=== PATIENT | female | born 1970 | race American Indian/Alaskan Native ===

== ENCOUNTER 2019-05-10 07:34 | Outpatient (CLI) | payer BC ==
--- NOTE | 2019-05-10 09:38 | Mammography Report ---
DIGITAL SCREENING MAMMOGRAM WITH CAD, 05/10/2019 INDICATION: Routine screening mammography. TECHNIQUE: Digital bilateral 2D mammography was obtained in the craniocaudal and mediolateral obliq ue projections. This examination was interpreted with the benefit of Computer-Aided Detection analysi s. COMPARISON: 02/14/2011 FINDINGS: Breast Density: The breasts are heterogeneously dense, which may obscure small masses. A left focal asymmetry requires additional imaging. No architectural distortion or suspicious calcifi cations of the left breast. There is no evidence of dominant mass, suspicious calcifications or archi tectural distortion in the right breast. IMPRESSION: Left focal asymmetry requiring additional imaging. Recommend recall for left lateral medi al and spot magnification MLO and CC views and left breast ultrasound if needed. Follow up recommendation: Routine yearly Category 0: Incomplete. Needs additional imaging evaluation and/or prior mammograms for comparison. A "normal" or negative report should not discourage follow up or biopsy of a clinically significant f inding. A written summary of these findings will be mailed to the patient. The patient will be entered into a mammography reporting system which will generate a reminder letter for the patient's next appointmen t at the appropriate interval. The [employer] recommends yearly mammograms starting at age 40 and continuing as l nasima as a woman is in good health. Breast MRI is recommended for women with an approximate 20-25% or greater lifetime risk of breast cancer, including women with a strong family history of breast or ova cristofer cancer or who have been treated for Hodgkin's disease. Signer Name: Denis Marmolejo MD Signed: 05/10/2019 9:34 AM Workstation Name: [id number]
--- NOTE | 2019-05-10 13:34 | Vascular Lab Report ---
DUPLEX DOPPLER LOWER EXTREMITY ARTERIAL, RIGHT INDICATION: PAIN IN RIGHT LOWER LEG. TECHNIQUE: Arterial duplex examination of both lower extremities performed using B-mode, color flow and spectral Doppler assessment. FINDINGS: RIGHT: Common Femoral Artery: PSV 112 cm/sec. Triphasic waveform. Proximal SFA: PSV 124 cm/sec. Triphasic waveform. Mid SFA: PSV 127 cm/sec. Triphasic waveform. Distal SFA: PSV 93 cm/sec. Triphasic waveform. Popliteal artery: PSV 85 cm/sec. Triphasic waveform. Posterior tibial artery: PSV 110 cm/sec. Triphasic waveform. Anterior tibial artery: PSV 93 cm/sec. Biphasic waveform. Dorsalis Pedis Artery: PSV 104 cm/sec. Triphasic waveform. IMPRESSION: No significant right lower extremity peripheral artery disease. Doppler Waveform: * Triphasic is normal. * Biphasic is abnormal if clear transition from triphasic signal along vascular tree. * Monophasic is abnormal. Signer Name: Gilmar Bryan Jr, MD Signed: 05/10/2019 1:29 PM Workstation Name: [id number]
== END 2019-05-10 07:35 | disposition home or self-care (01) ==
LOC: VAS 07:34
PROVIDERS: ATTEND Obstetrics & Gynecology
DX: Z12.31 Encounter for screening mammogram for malignant neoplasm of breast (principal); M79.604 Pain in right leg
CPT/HCPCS: 77067

== ENCOUNTER 2019-07-03 18:11 | Inpatient (IN) | payer BC ==
--- NOTE | 2019-07-03 18:36 | Event Note ---
ED Screening Note Date of service: 07/03/19 Time: 18:34 ED Screening Note: Pt complains of heavy vaginal bleeding x today had hysterectomy 06/15/19 This initial assessment/diagnostic orders/clinical plan/treatment(s) is/are subject to change based on patients health status, clinical progression and re- assessment by fellow clinical providers in the ED. Further treatment and workup at subsequent clinical providers discretion. Patient/guardian urged not to elope from the ED as their condition may be serious if not clinically assessed and managed. Initial orders include: CT labs
[2019-07-03] MEDS ORDERED: SODIUM CHLORIDE 0.9% 1000 ML 1,000 ML IV ONE (18:54)
--- NOTE | 2019-07-03 18:59 | Emergency Department Report ---
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 She recently had a total abdominal hysterectomy with bilateral salpingo-oophorectomy, between June 15, June 17 of this year. She was discharged without significant complication. She followed up with her nurse case management on the , and stated that her postop visit was unremarkable and within normal limits. Today, the patient presents to the ER with a complaint of painless vaginal bleeding and passing tissue, which started at 5:00 this afternoon. Symptoms are constant. They do not radiate anywhere. They do not have exacerbating or relieving factors. She denies additional complaints. She states that from a pain perspective, her pain has been the most well-controlled that it is been since her surgery, she is not required any pain medicine. She denies headache, neck pain, chest pain, shortness of breath, abdominal pain, urinary symptoms, hematemesis and bright red blood per rectum. She further endorses that she does not take any blood thinning medications. -: Sudden Consistency: constant Improves with: none Worsens with: none Associated Symptoms: denies other symptoms - Related Data Home Medications Medication Instructions Recorded Confirmed Last Taken Iron Fum,Ps/Folic/Bcomp,C No.9 1 each PO DAILY 06/07/19 06/15/19 06/14/19 09:00 [Integra Plus Capsule] amLODIPine 10 mg PO DAILY 06/07/19 06/15/19 06/15/19 06:00 hydroCHLOROthiazide [HCTZ] 12.5 mg PO DAILY 06/07/19 06/15/19 06/14/19 09:00 Allergies Allergy/AdvReac Type Severity Reaction Status Date / Time No Known Allergies Allergy Verified 06/07/19 12:07 ED Review of Systems ROS: Stated complaint: POST OP PAIN/VAG BLEEDING Other details as noted in HPI Constitutional: denies: fever Eyes: denies: eye discharge ENT: denies: congestion Cardiovascular: denies: syncope Gastrointestinal: denies: abdominal pain, nausea, vomiting, hematemesis, melena, hematochezia Genitourinary: other (Vaginal bleeding). denies: dysuria Musculoskeletal: as per HPI Skin: as per HPI Neurological: as per HPI Psychiatric: as per HPI Hematological/Lymphatic: as per HPI ED Past Medical Hx - Past Medical History Previous Medical History?: Yes Hx Hypertension: Yes (instructed to take amlodipine DOS) Hx Heart Attack/AMI: No Hx Congestive Heart Failure: No Hx Diabetes: No Hx Liver Disease: No Hx Renal Disease: No Hx Asthma: No Hx COPD: No Additional medical history: fibroids - Surgical History Past Surgical History?: Yes Additional Surgical History: Hysterectomy - Social History Smoking Status: Never Smoker Substance Use Type: None - Medications Home Medications: Home Medications Medication Instructions Recorded Confirmed Last Taken Type Iron Fum,Ps/Folic/Bcomp,C No.9 1 each PO DAILY 06/07/19 06/15/19 06/14/19 09:00 History [Integra Plus Capsule] amLODIPine 10 mg PO DAILY 06/07/19 06/15/19 06/15/19 06:00 History hydroCHLOROthiazide [HCTZ] 12.5 mg PO DAILY 06/07/19 06/15/19 06/14/19 09:00 History ED Physical Exam - General Limitations: No Limitations General appearance: alert, anxious, in distress - Head Head exam: Present: atraumatic, normocephalic - Eye Eye exam: Present: normal appearance, EOMI. Absent: nystagmus - ENT ENT exam: Present: normal exam, normal orophraynx, mucous membranes moist, normal external ear exam - Neck Neck exam: Present: normal inspection, full ROM. Absent: tenderness, meningismus - Respiratory Respiratory exam: Present: normal lung sounds bilaterally. Absent: respiratory distress - Cardiovascular Cardiovascular Exam: Present: regular rate, normal rhythm, normal heart sounds. Absent: bradycardia, tachycardia, irregular rhythm, systolic murmur, diastolic murmur, rubs, gallop - GI/Abdominal GI/Abdominal exam: Present: soft, normal bowel sounds. Absent: distended, tenderness, guarding, rebound, rigid, pulsatile mass - External exam: Present: normal external exam Speculum exam: Present: vaginal bleeding, tissue, other (Chaperoned by shipping & receiving lead Betzaida Shin) - Extremities Exam Extremities exam: Present: normal inspection, full ROM, other (2+ pulses noted in the bilateral upper and lower extremities. There is no palpable cord. negative Homans sign. Muscular compartments are soft. The pelvis is stable.). Absent: pedal edema, calf tenderness - Back Exam Back exam: Present: normal inspection, full ROM. Absent: tenderness, CVA tenderness (R), CVA tenderness (L), paraspinal tenderness, vertebral tenderness - Neurological Exam Neurological exam: Present: alert, oriented X3, normal gait, other (There is no facial droop. The tongue is midline. Extraocular movements are intact bilaterally. There is 5 out of 5 strength in bilateral upper and lower extremities. Sensation is intact to light touch bilateral upper and lower extremities. There is no past-pointing. There is a normal gait.). Absent: motor sensory deficit - Psychiatric Psychiatric exam: Present: anxious - Skin Skin exam: Present: warm, dry, intact, normal color. Absent: rash ED Course Vital Signs 07/03/19 07/03/19 18:19 18:21 Temperature 98.0 F 98.0 F Pulse Rate 79 85 Respiratory 16 16 Rate Blood Pressure 163/93 163/93 O2 Sat by Pulse 99 98 Oximetry - Reevaluation(s) Reevaluation #1: 07/03/19 19:23 Differential diagnosis, including but not limited to: Postoperative bleeding, laceration, postoperative complication Assessment and plan: 48-year-old female who is afebrile with reassuring vital signs, with no abdominal pain, tenderness, rebound or guarding, who is approximately 2-1/2 to 3 weeks status post total abdominal hysterectomy with bilateral salpingo-oophorectomy, now with new onset spontaneous vaginal bleeding. Her nurse case management, Dr. Rosita Sharma, is in route to evaluate and examine the patient. IV access will be established, IV fluids ordered, screening laboratory studies ordered. Hypertension reviewed and appreciated, the patient apparently has a history of chronic hypertension, we will withhold antihypertensive agents at this time. 07/03/19 20:18 Dr Bowen to admit ED Medical Decision Making - Lab Data Result diagrams: 07/03/19 19:03 07/03/19 19:03 Vital Signs 07/03/19 07/03/19 18:19 18:21 Temperature 98.0 F 98.0 F Pulse Rate 79 85 Respiratory 16 16 Rate Blood Pressure 163/93 163/93 O2 Sat by Pulse 99 98 Oximetry Vital Signs - 24 hr 07/03/19 07/03/19 18:19 18:21 Temperature 98.0 F 98.0 F Pulse Rate 79 85 Respiratory 16 16 Rate Blood Pressure 163/93 163/93 O2 Sat by Pulse 99 98 Oximetry Lab Results 07/03/19 07/03/19 07/03/19 Range/Units 19:03 19:03 19:03 WBC 6.0 (4.5-11.0) K/mm3 RBC 4.59 (3.65-5.03) M/mm3 Hgb 10.7 (10.1-14.3) gm/dl Hct 34.1 (30.3-42.9) % MCV 74 L (79-97) fl MCH 23 L (28-32) pg MCHC 31 (30-34) % RDW 18.6 H (13.2-15.2) % PT TNR INR TNR APTT TNR Sodium 138 (137-145) mmol/L Potassium 4.2 (3.6-5.0) mmol/L Chloride 102.5 (98-107) mmol/L Carbon Dioxide 22 (22-30) mmol/L Anion Gap 18 mmol/L BUN 12 (7-17) mg/dL Creatinine 0.8 (0.7-1.2) mg/dL Estimated GFR > 60 ml/min BUN/Creatinine Ratio 15 % Glucose 112 H (65-100) mg/dL Calcium 9.3 (8.4-10.2) mg/dL Magnesium (1.7-2.3) mg/dL Total Bilirubin < 0.20 (0.1-1.2) mg/dL AST 19 (5-40) units/L ALT 12 (7-56) units/L Alkaline Phosphatase 52 (35-129) units/L Total Creatine Kinase (30-135) units/L Total Protein 7.6 (6.3-8.2) g/dL Albumin 4.6 (3.9-5) g/dL Albumin/Globulin Ratio 1.5 % Blood Type 07/03/19 07/03/19 Range/Units 19:03 19:03 WBC (4.5-11.0) K/mm3 RBC (3.65-5.03) M/mm3 Hgb (10.1-14.3) gm/dl Hct (30.3-42.9) % MCV (79-97) fl MCH (28-32) pg MCHC (30-34) % RDW (13.2-15.2) % PT INR APTT Sodium (137-145) mmol/L Potassium (3.6-5.0) mmol/L Chloride (98-107) mmol/L Carbon Dioxide (22-30) mmol/L Anion Gap mmol/L BUN (7-17) mg/dL Creatinine (0.7-1.2) mg/dL Estimated GFR ml/min BUN/Creatinine Ratio % Glucose (65-100) mg/dL Calcium (8.4-10.2) mg/dL Magnesium 2.00 (1.7-2.3) mg/dL Total Bilirubin (0.1-1.2) mg/dL AST (5-40) units/L ALT (7-56) units/L Alkaline Phosphatase (35-129) units/L Total Creatine Kinase 48 (30-135) units/L Total Protein (6.3-8.2) g/dL Albumin (3.9-5) g/dL Albumin/Globulin Ratio % Blood Type O POSITIVE Critical care attestation.: If time is entered above; I have spent that time in minutes in the direct care of this critically ill patient, excluding procedure time. ED Disposition Clinical Impression: Postoperative vaginal bleeding, S/P SHIRA (total abdominal hysterectomy), Status post bilateral salpingectomy Disposition: OP ADMIT IP TO THIS HOSP Is pt being admited?: Yes Does the pt Need Aspirin: No Condition: Good
[2019-07-03 19:22] LABS: Hematocrit 34.1 % (30.3-42.9); Hemoglobin 10.7 gm/dl (10.1-14.3); Mean Corpuscular HGB Conc 31 % (30-34); Mean Corpuscular Volume 74 fl (79-97); Red Blood Count 4.59 M/mm3 (3.65-5.03); Red Cell Distribution Width 18.6 % (13.2-15.2)
[2019-07-03] MEDS ORDERED: SILVER NITRATE APPLICATOR 1 EA TP ONE ×2 (19:41→20:05)
[2019-07-03 19:46] LABS: INR TNR (0.87-1.13); Partial Thromboplastin Time TNR Sec. (24.2-36.6)
[2019-07-03 19:50] LABS: Alanine Aminotransferase 12 units/L (7-56); Albumin 4.6 g/dL (3.9-5); BUN/Creatinine Ratio 15; Blood Urea Nitrogen 12 mg/dL (7-17); Calcium 9.3 mg/dL (8.4-10.2); Hemolysis Index 1
--- NOTE | 2019-07-03 20:05 | History and Physical Report ---
History of Present Illness Date of examination: 07/03/19 Date of admission: 07/03/2019 Chief complaint: vaginal bleeding with passing clots History of present illness: Pt is POD#18 s/p JAILYN with BS that was not complicated. She had POD visit at day #7 and reported only vaginal spotting. States that after operating wetvacc in basement after flooding she felt abdominal cramping followed by vaginal bleeding that was heavy and with passage of clots. When in the ER she was evaluated by myself and clots were evaluated and the cuff at the left side proximal to angle was noted to have an area of what appears to be granulation tissue with bleeding fromt his area. Silver nitrated was applied and the bleeding became very minimal. I d/w admission for observation to monitor bleeding to be sure no other procedures needed to be done. I did d/w possibility of an exam under anesthesia to better evaluate the area that is bleeding if it does not resolve. She expressed understanding and agrees with plan of care at this time. She denies any fevers, chills, abdominal distention, pain(until the vaginal exam), diarrhea or constipation. States bleeding just started at 5pm today. 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 History: denies: abnormal PAP smear Social history: denies: no significant social history Medications and Allergies Allergies Allergy/AdvReac Type Severity Reaction Status Date / Time No Known Allergies Allergy Verified 06/07/19 12:07 Home Medications Medication Instructions Recorded Confirmed Last Taken Type Iron Fum,Ps/Folic/Bcomp,C No.9 1 each PO DAILY 06/07/19 06/15/19 06/14/19 09:00 History [Integra Plus Capsule] amLODIPine 10 mg PO DAILY 06/07/19 06/15/19 06/15/19 06:00 History hydroCHLOROthiazide [HCTZ] 12.5 mg PO DAILY 06/07/19 06/15/19 06/14/19 09:00 History - Vital Signs Vital signs: Vital Signs Temp Pulse Resp BP Pulse Ox 98.0 F 79 16 163/93 99 07/03/19 18:19 07/03/19 18:19 07/03/19 18:19 07/03/19 18:19 07/03/19 18:19 Temp Pulse Resp BP Pulse Ox 98.0 F 85 16 163/93 98 07/03/19 18:21 07/03/19 18:21 07/03/19 18:21 07/03/19 18:21 07/03/19 18:21 - Physical Exam Cardiovascular: Normal S1, Normal S2 Lungs: Positive: Clear to auscultation, Normal air movement Abdomen: Positive: normal appearance, soft. Negative: distention, tenderness, guarding Genitourinary (Female): Positive: other (clots removed from the introitus) Vagina: Positive: other (cuff palpated and intact no defect could be felt or seen on exam. With evauation of the clots minimal bleeding was noted from left proximal end of the cuft incision. Silver nitratrat appled. Again with application of the silver nitrate tip did no penetrate beyond the cuff incision line as it is intact. some tenderness on exam. small granuation tissue see and bleeding seem to be from edge of cuff near incision line. pressure applied and several silver nitrate sticks applied with minmal bleeding noted at end of the exam.) Cervix: Positive: absent Uterus: Positive: absent Extremities: Positive: normal. Negative: tenderness, edema Deep Tendon Reflex Grade: Normal +2 Results Result Diagrams: 07/03/19 19:03 07/03/19 19:03 Abnormal lab results 07/03/19 07/03/19 Range/Units 19:03 19:03 MCV 74 L (79-97) fl MCH 23 L (28-32) pg RDW 18.6 H (13.2-15.2) % Glucose 112 H (65-100) mg/dL All other labs normal. Assessment and Plan - Patient Problems (1) Granulation tissue of vaginal cuff Status: Acute Plan to address problem: -responded well to placement of silver nitrate. Will monitor over night and do strict pad counts. If bleeding resumes will plan for exam under anesthesia with possible electrocautery of the area. -plan of care was d/w pt and her son. She expressed understanding. All questions were addressed and answered. -strict pad counts -h/h stable but will repeat in the am -npo after midnight (2) S/P JAILYN (total abdominal hysterectomy) Status: Acute
--- NOTE | 2019-07-03 20:05 | Event Note ---
Date: 07/03/19 Pt seen and evaluated. Silver nitrate applied to vaginal cuff at area of granulation tissue that seems to be bleeding. Minimal bleeding noted after evaluation of clots and application of medication. Pt tolerated the procedure well. Will admit for observation to monitor bleeding in mother baby.
[2019-07-03] MEDS ORDERED: ONDANSETRON 4 MG/2 ML INJ IV PRN (20:06)
[2019-07-03] MEDS ORDERED: ACETAMINOPHEN 325 MG TAB PO PRN (20:06)
[2019-07-03 20:16] LABS: Total Cells Counted 100
[2019-07-03 20:17] LABS: Anisocytosis 2+; Macrocytosis Few; Ovalocytes Few; Tear Drop Cells Rare
[2019-07-03 20:18] LABS: Giant Platelets Rare; Large Platelets Few; Platelet Estimate Consistent w Auto
[2019-07-03 20:19] LABS: Platelet Count 235 K/mm3 (140-440)
[2019-07-03] MEDS: oxyCODONE /ACETAMINOPHEN 5-325MG TAB PO PRN (20:34)
[2019-07-03] MEDS ORDERED: IBUPROFEN 800 MG TAB PO SCH (21:00)
[2019-07-04 00:26] LABS: INR 0.83 (0.87-1.13); Partial Thromboplastin Time 34.5 Sec. (24.2-36.6)
[2019-07-04 06:38] LABS: Hematocrit 29.1 % (30.3-42.9)
[2019-07-04] MEDS: metroNIDAZOLE/NS 500 MG/100 ML 500 MG/100 ML BAG IV SCH ×2 (06:39→15:21)
[2019-07-04] MEDS ORDERED: LACTATED RINGERS 1,000 ML IV SCH (07:00)
--- NOTE | 2019-07-04 09:13 | Event Note ---
Date: 07/04/19 Pt continues to have bleeding from the vaginal cuff. It has decreased since admission but seems to still be moderate. I d/w observation with continued treatment in the office with silver nitrate/ mosels vs exam under anesthesia to determine if electrocautery vs stitch needs to be placed at the are of bleeding. Pt desires EUA at this time. All risk, benefits and alternatives were d/w pt. Consent was signed and placed on the chart. OR staFF made aware of pt being added to the board this am. She is currently AFVSS with only slight drop in h/h which is her baseline at this point. Will proceed to OR for EUA and any other indicated procedures pending findings on exam.
--- NOTE | 2019-07-04 09:45 | Anesthesia Day of Surgery ---
Anesthesia Day of Surgery - Day of Surgery Patient Examined: Yes Patient H&P Reviewed: Yes Patient is NPO: Yes
[2019-07-04] MEDS ORDERED: FERRIC SUBSULFATE TOPICAL SOLN 8 ML TP ONE ×2 (09:51→10:59)
--- NOTE | 2019-07-04 09:52 | Anesthesia Consultation ---
Anesthesia Consult and Med Hx Date of service: 07/04/19 - Airway Anesthetic Teeth Evaluation: Chipped ROM Head & Neck: Adequate Mental/Hyoid Distance: Adequate Mallampati Class: Class I Intubation Access Assessment: Good - Pre-Operative Health Status ASA Pre-Surgery Classification: ASA2, Emergency Proposed Anesthetic Plan: General - Pulmonary Hx Smoking: No Hx Asthma: No Hx Respiratory Symptoms: No COPD: No Hx Pneumonia: No - Cardiovascular System Hx Hypertension: Yes Hx Heart Attack/AMI: No - Central Nervous System CVA: No Hx Psychiatric Problems: No - Gastrointestinal Hx Gastroesophageal Reflux Disease: No - Endocrine Hx Renal Disease: No Hx End Stage Renal Disease: No Hx Liver Disease: No Hx Insulin Dependent Diabetes: No Hx Non-Insulin Dependent Diabetes: No Hx Thyroid Disease: No - Hematic Hx Anemia: Yes (no hx blood transfusion) - Other Systems Hx Alcohol Use: Yes (Occas) Hx Cancer: No Hx Obesity: No - Additional Comments Anesthesia Medical History Comments: Was here [id number] for hysterectomy. HX: PONV
[2019-07-04] MEDS ORDERED: dexAMETHasone 20 MG/5 ML VIAL ONE (10:02)
[2019-07-04] MEDS ORDERED: GLYCOPYRROLATE 0.4 MG/2 ML INJ ONE (10:02)
[2019-07-04] MEDS ORDERED: LIDOCAINE MPF (2%) 20 MG/1 ML VIAL 5 ML ONE (10:02)
[2019-07-04] MEDS ORDERED: PHENYLEPHRINE/NS 1,000 MCG/10 ML SYRINGE (OR USE) IV ONE (10:02)
[2019-07-04] MEDS ORDERED: fentaNYL 100 MCG/2 ML INJ ONE (10:02)
[2019-07-04] MEDS ORDERED: SUCCINYLCHOLINE CHLORIDE 200 MG/10 ML INJ MDV ONE (10:02)
[2019-07-04] MEDS ORDERED: propofoL 200 MG/20 ML VIAL IV ONE (10:02)
[2019-07-04] MEDS ORDERED: ONDANSETRON 4 MG/2 ML INJ ONE (10:02)
[2019-07-04] MEDS ORDERED: SCOPOLAMINE TRANSDERMAL PATCH 72 HR TD ONE (10:04)
[2019-07-04] MEDS ORDERED: SILVER NITRATE APPLICATOR 1 EA TP ONE ×2 (10:37→10:58)
[2019-07-04] MEDS ORDERED: ONDANSETRON 4 MG/2 ML INJ IV PRN (10:55)
[2019-07-04] MEDS ORDERED: fentaNYL 100 MCG/2 ML INJ IV PRN (10:55)
[2019-07-04] MEDS ORDERED: SODIUM CHLORIDE 0.9% IRR 1,500 ML BOTTLE IR ONE (11:00)
--- NOTE | 2019-07-04 11:03 | Post Anesthesia Evaluation ---
- Post Anesthesia Evaluation Patient Participated: Yes Airway Patent: Yes Stable Respiratory Function: Yes Nausea/Vomiting: No Temp > 96.8F: Yes Pain Manageable: Yes Adequeate Hydration: Yes Anesthesia Complications: No Block Receding Appropriately: Not Applicable Patient on Ventilator: No
--- NOTE | 2019-07-04 11:14 | Operative Report ---
Operative Report Operative Report: Date of procedure: 07/04/2019 Pre-operative diagnosis: Status post total abdominal hysterectomy Vaginal bleeding Post-operative diagnosis: Same plus granulation tissue noted at the vaginal cuff Procedure name(s): Exam under anesthesia Application of Monsel solution for bleeding Surgeon: Dr. Reyes Photographic Colorist: WILMAN Anesthesia: General endotracheal anesthesia EBL: 50 mL prior to the procedure in clots evacuated from the vagina during vaginal preparation. No bleeding during the procedure Urine output: 200 cc of clear urine evacuated via straight catheterization prior to the procedure Fluids: Approximately 500 mL Findings: Patient was noted to have intact vaginal cuff with post operative changes noted. There was an area at the left edge of the vaginal cuff where silver nitrate had been applied previously that was also noted. There appeared to be a small tear in the vaginal tissue that responded to application of Monsel's and silver nitrate. Patient was noted to have no active bleeding during the procedure with position change with removal of the speculum observation and replacement of the speculum. There was no active bleeding that could be seen during the procedure or after the procedure. Patient was noted to be completely hemostatic. Indications: Patient presented to the emergency room with the sudden onset of vaginal bleeding that occurred after doing rigorous activity with evacuation of water from her basement via wet VAC machine. Patient had not had any bleeding prior to this time and was doing well in her postoperative recovery. Patient was seen in emergency room and area that was bleeding was treated with silver nitrate. Bleeding greatly reduced but was still present and decision was made to proceed with exam under anesthesia to see if any further procedures needed to be performed. All risks benefits and alternatives were discussed with the p atient. Consents were signed and placed on the chart. Patient was taken to the recovery room awake and in stable condition.
--- NOTE | 2019-07-04 11:31 | Event Note ---
Date: 07/04/19 Findings from the EUA were d/w pt and questions were addressed and answered. Pt advised that she will be monitored for any further bleeding at this time. Pt advised that she had little to no bleeding during the procedure and now after the procedure no bleeding is noted. She expressed understanding.
[2019-07-04] MEDS: oxyCODONE /ACETAMINOPHEN 5-325MG TAB PO PRN (13:58)
[2019-07-04 16:50] VITALS: BP 116/75
--- NOTE | 2019-07-05 11:57 | Discharge Summary ---
Providers - Providers Date of Admission: 07/03/19 20:06 Date of discharge: 07/04/19 (late entry pt d/c home on07/04/2019) Attending physician: AUTUMN MOLINA 07/03/19 18:54 Consult to Physician [CONS] Urgent Comment: Consulting Provider: AUTUMN MOLINA Physician Instructions: Reason For Exam: post op bleeding Primary care physician: LOCATION DIRECTOR Hospitalization Reason for admission: other (vaginal bleeding after c/s) Procedure: other (exam under anesthesia) Procedure details: see op note Incision: other (vaginal cuff incision intact. no bleeding noted with application of monsel and silver nitrate to granulation tissue and the left proximal porotion of the incision.) Discharge diagnosis: other (vaginal cuff granualtion tissue) Hospital course: Pt admitted due to having bleeding from vagina 2.5 wks post op from [facility] after doing some strenous activity. Pt pt examined in ER and had treatment of silver nitrate which resulted in bleeding being reduced but it continued and was admitted for observation. Pt continued to have moderate bleeding and was taken for EUA. See op note.She had additional treatments of vaginal cuff with silver nitrate and monsel which resulted in complete resolution of the bleeding. Upon d/c home pt continued to have no bleeding with ambulation and with urination. pt desired d/c home and was d/c home >6hours after the second treatment in stable condition. Pt to having f/u in the office on Friday07/06/2019. Condition at discharge: Good Disposition: DC-[id number] TO HOME OR SELFCARE - Discharge Diagnoses (1) Granulation tissue of vaginal cuff Status: Acute (2) S/P SHIRA (total abdominal hysterectomy) Status: Acute Plan - Provider Discharge Summary Additional instructions: [] Smoking cessation referral if applicable(refer to patient education folder for contact #) [] Refer to [facility] Booklet Call your doctor immediately for: * Fever > 100.5 * Heavy vaginal bleeding ( >1 pad per hour) * Severe persistent headache * Shortness of breath * Reddened, hot, painful area to leg or breast * Drainage or odor from incision. * Keep incision clean and dry at all times and follow doctor's instructions regarding bathing/showering - Follow up plan Follow up: PRIMARY CARE,MD [Primary Care Provider] - 7 Days Forms: [facility] Discharge Summary
== END 2019-07-04 18:00 | disposition home or self-care (01) | DRG 759 ==
LOC: ED 18:11 → OB 20:06 → OBSVTOIN 20:06
PROVIDERS: ADMIT Obstetrics & Gynecology; ATTEND Obstetrics & Gynecology
PROC: 0UJH7ZZ Inspection of Vagina and Cul-de-sac, Via Natural or Artificial Opening (ICD-10-PCS; principal; 2019-07-04)
PROC: 0UCGXZZ Extirpation of Matter from Vagina, External Approach (ICD-10-PCS; 2019-07-04)
DX: A58 Granuloma inguinale (principal); N93.9 Abnormal uterine and vaginal bleeding, unspecified; I10 Essential (primary) hypertension; Z90.710 Acquired absence of both cervix and uterus; Z90.722 Acquired absence of ovaries, bilateral; Z79.899 Other long term (current) drug therapy
CPT/HCPCS: 36415; 80053; 82550; 83735; 85007; 85014; 85018; 85025; 85610; 85730; 86850; 86900; 86901; G0378; J0330; J1100; J2370; J2405; J2704; J3010; J7030; J7120